=== PATIENT | female | born 1990 | race Hispanic/Latino ===

== ENCOUNTER 2018-12-18 12:06 | Emergency (ER) | payer MEDICAID, OTHER ==
[2018-12-18 12:48] VITALS: BP 128/85; PULSE 74; RESP 18; TEMP 98.7; O2SAT 100
--- NOTE | 2018-12-18 13:58 | ED PDOC ---
Arrival/HPI - General Chief Complaint: Female Genitourinary Time Seen by Provider: 12/18/18 12:50 Historian: Patient - History of Present Illness Narrative History of Present Illness (Text): 12/18/18 13:12 28 y/o female, with no significant past medical history, presents to the ED for evaluation of vaginal spotting since past 3 days. Patient reports onset of symptoms with mild vaginal spotting on Tuesday, which developed into heavy bright red bleeding today, prompting her to present to the ED for evaluation of possible miscarriage. Patient reports history of miscarriage 7 years ago at gestation age of 7 weeks. Patient informs sexual intercourse Tuesday morning but denies any complications at the time. Patient reports taking vitamins but denies any INVENTORY ADMINISTRATOR care yet. Patient states her LNMP was 11/08/18. Patient currently denies any other associated somatic complaints. Patient denies any fevers, chills, headache, dizziness, chest pain, shortness of breath, dyspnea on exertion, cough, abdominal pain, nausea, vomiting, diarrhea, back pain, neck pain, or any other complaints. PMD: NONE Time/Duration: < week Symptom Onset: Gradual Symptom Course: Unchanged Activities at Onset: Light Context: Home Past Medical History - Provider Review Nursing Documentation Reviewed: Yes - Psychiatric Hx Substance Use: No - Surgical History Hx Dilation and Curettage: Yes (x 7 years ago) - Anesthesia Hx Anesthesia: Yes Hx Anesthesia Reactions: No Hx Malignant Hyperthermia: No Family/Social History - Physician Review Nursing Documentation Reviewed: Yes Family/Social History: Unknown Family HX Smoking Status: Never Smoked Hx Alcohol Use: No Hx Substance Use: No Allergies/Home Meds Allergies/Adverse Reactions: Allergies No Known Allergies Allergy (Verified 12/18/18 12:43) Review of Systems - Physician Review All systems were reviewed & negative as marked: Yes - Review of Systems Constitutional: absent: Fevers Respiratory: absent: SOB, Cough Cardiovascular: absent: Chest Pain Gastrointestinal: absent: Abdominal Pain, Diarrhea, Nausea, Vomiting Genitourinary Female: Vaginal Bleeding. absent: Dysuria, Hematuria Musculoskeletal: absent: Back Pain, Neck Pain Skin: absent: Rash Neurological: absent: Headache, Dizziness Psychiatric: absent: Anxiety Physical Exam Vital Signs Reviewed: Yes Vital Signs Temp Pulse Resp BP Pulse Ox 12/18/18 12:06 98.7 F 74 18 128/85 100 Temperature: Afebrile Blood Pressure: Normal Pulse: Regular Respiratory Rate: Normal Appearance: Positive for: Well-Appearing, Non-Toxic, Comfortable Pain Distress: None Mental Status: Positive for: Alert and Oriented X 3 - Systems Exam Head: Present: Atraumatic, Normocephalic Pupils: Present: PERRL Extroacular Muscles: Present: EOMI Conjunctiva: Present: Normal Respiratory/Chest: Present: Clear to Auscultation, Good Air Exchange. No: Respiratory Distress, Accessory Muscle Use Cardiovascular: Present: Regular Rate and Rhythm, Normal S1, S2. No: Murmurs Abdomen: No: Tenderness, Distention, Peritoneal Signs Back: Present: Normal Inspection. No: CVA Tenderness Upper Extremity: Present: Normal Inspection. No: Cyanosis, Edema Lower Extremity: Present: Normal Inspection. No: Edema Neurological: Present: GCS=15, Speech Normal Skin: Present: Warm, Dry, Normal Color. No: Rashes Psychiatric: Present: Alert, Oriented x 3, Normal Insight, Normal Concentration Medical Decision Making ED Course and Treatment: 12/18/18 13:12 Impression: 28 year old female presents to the ED for evaluation of vaginal bleeding. Differential Diagnosis included but are not limited to: -- Miscarriage Plan: -- Labs -- Urine Culture -- Urinalysis -- Transvaginal US -- Reassess and disposition Prior Visits: Notes and results from previous visits were reviewed. Progress Notes: - RAD Interpretation Narrative RAD Interpretations (Text): 12/18/18 15:57 Transvaginal US reviewed by radiologist, shows: FINDINGS: The uterus measures 7.0 x 4.4 x 5.5 centimeters. The endometrium measures 11 millimeters. There is an intrauterine gestational sac measuring roughly 6 millimeters. There is no pole observed. The right ovary measures 4.0 x 3.7 centimeters and contains a 1.2 centimeters cyst. The left ovary measures 2.5 x 3.0 centimeters. IMPRESSION: Intrauterine gestational sac measuring less than 5 weeks gestational age. Recommend correlation with serial beta HCG levels and short-term interval follow-up. Ectopic not excluded. Radiology Orders: 12/18/18 13:12 TRANSVAGINAL [US] Stat Environmental Systems Coordinator: Radiologist - Scribe Statement The provider has reviewed the documentation as recorded by the Scribe Sera Dunham. All medical record entries made by the Scribe were at my direction and personally dictated by me. I have reviewed the chart and agree that the record accurately reflects my personal performance of the history, physical exam, medical decision making, and the department course for this patient. I have also personally directed, reviewed, and agree with the discharge instructions and disposition. Disposition/Present on Arrival - Present on Arrival Any Indicators Present on Arrival: No History of DVT/PE: No History of Uncontrolled Diabetes: No Urinary Catheter: No History of Decub. Ulcer: No History Surgical Site Infection Following: None - Disposition Have Diagnosis and Disposition been Completed?: Yes Diagnosis: Threatened miscarriage in early Disposition: HOME/ ROUTINE Disposition Time: 15:37 Patient Plan: Discharge Patient Problems: Current Active Problems Problem Status Onset Threatened miscarriage in early Acute Condition: FAIR Discharge Instructions (ExitCare): Threatened Miscarriage (DC), Bleeding With (DC) Print Language: BENGALI Additional Instructions: All medical record entries made by the Scribe were at my direction and personally dictated by me. I have reviewed the chart and agree that the record accurately reflects my personal performance of the history, physical exam, medical decision making, and the department course for this patient. I have also personally directed, reviewed, and agree with the discharge instructions and disposition. Please return to the ED for repeat beta-hcg test Referrals: Azalea Bravo MD [Staff Provider] - Follow up with primary Forms: [facility] [employer] [facility] ([place]), WORK NOTE
[2018-12-18 14:13] LABS: PH,URINE 7.5 (4.7-8.0); URINE APPEARANCE TURBID (CLEAR); URINE BILIRUBIN NEGATIVE (NEGATIVE); URINE BLOOD LARGE (NEGATIVE); URINE COLOR YELLOW (YELLOW); URINE GLUCOSE (UA) NEGATIVE (NEGATIVE); URINE LEUKOCYTE ESTERASE NEGATIVE Leu/uL (NEGATIVE); URINE PROTEIN NEGATIVE mg/dL (<30 mg/dL); URINE UROBILINOGEN 0.2 E.U./dL (<1 E.U./dL)
[2018-12-18 14:17] LABS: BASO # 0.02 K/mm3 (0.0-2.0); BASO % 0.3 % (0.0-3.0); EOS # 0.1 (0.0-0.7); EOS % 0.9 % (1.5-5.0); HEMOGLOBIN 12.8 g/dL (12.0-16.0); LYMPH # 1.8 (1.2-3.4); LYMPH % 27.6 % (22.0-35.0); MEAN CELL VOLUME 85.7 fl (80.0-105.0); MEAN CORPUSCULAR HEMOGLOBIN 28.1 pg (25.0-35.0); MEAN CORPUSCULAR HGB CONC 32.7 g/dl (31.0-37.0); MEAN PLATELET VOLUME 10.7 fl (7.0-11.0); MONO # 0.4 (0.1-0.6); MONO % 6.4 % (1.0-6.0); RBC 4.56 10^6/uL (3.5-6.1); WHITE BLOOD COUNT 6.5 10^3/uL (4.5-11.0)
[2018-12-18 14:22] LABS: ALB/GLOB RATIO 1.6 (1.1-1.8); ALBUMIN 4.6 g/dL (3.0-4.8); ALT/SGPT 13 U/L (7-56); AST/SGOT 17 U/L (14-36); BLOOD UREA NITROGEN 6 mg/dL (7-21); CALCIUM 9.3 mg/dL (8.4-10.5); GFR NON-AFRICAN AMERICAN > 60
--- NOTE | 2018-12-18 15:10 | US ---
Date of service: 12/18/2018 PROCEDURE: HISTORY: w/ spotting COMPARISON: TECHNIQUE: FINDINGS: The uterus measures 7.0 x 4.4 x 5.5 centimeters. The endometrium measures 11 millimeters. There is an intrauterine gestational sac measuring roughly 6 millimeters. There is no pole observed. The right ovary measures 4.0 x 3.7 centimeters and contains a 1.2 centimeters cyst. The left ovary measures 2.5 x 3.0 centimeters. IMPRESSION: Intrauterine gestational sac measuring less than 5 weeks gestational age. Recommend correlation with serial beta HCG levels and short-term interval follow-up. Ectopic not excluded.
== END 2018-12-18 15:44 | disposition home or self-care (01) ==
LOC: ED 12:06
DX: O20.0 Threatened abortion (principal); Z3A.01 Less than 8 weeks gestation of pregnancy

== ENCOUNTER 2018-12-20 10:46 | Emergency (ER) | payer MEDICAID, OTHER ==
[2018-12-20 11:14] VITALS: TEMP 98.6
[2018-12-20 13:07] VITALS: BP 105/68; PULSE 79; RESP 18; O2SAT 96
--- NOTE | 2018-12-21 01:07 | ED PDOC ---
Arrival/HPI - General Chief Complaint: Female Genitourinary Time Seen by Provider: 12/20/18 10:48 Historian: Patient - History of Present Illness Narrative History of Present Illness (Text): 28 y/o female presents to the ED for repeat quantitative beta hcg after her recent visit to the ED on 12/18. Transvaginal Ultrasound on 12/18 showed live IUP at 5 weeks. Pt states that vaginal bleeding has slowed since 2 days ago, now just intermittent light spotting. Denies fever, chills, abdominal pain, back pain, nausea, vomiting, dizziness, urinary symptoms, syncope, or any other associated symptoms. Past Medical History - Provider Review Nursing Documentation Reviewed: Yes - Cardiac Hx Cardiac Disorders: No - Pulmonary Hx Respiratory Disorders: No - Neurological Hx Neurological Disorder: No - HEENT Hx HEENT Disorder: No - Renal Hx Renal Disorder: No - Endocrine/Metabolic Hx Endocrine Disorders: No - Hematological/Oncological Hx Blood Disorders: No - Integumentary Hx Dermatological Disorder: No - Musculoskeletal/Rheumatological Hx Musculoskeletal Disorders: No - Gastrointestinal Hx Gastrointestinal Disorders: No - Genitourinary/Gynecological Hx Genitourinary Disorders: Yes - Psychiatric Hx Psychophysiologic Disorder: No Hx Substance Use: No - Surgical History Hx Dilation and Curettage: Yes - Anesthesia Hx Anesthesia: Yes Hx Anesthesia Reactions: No Hx Malignant Hyperthermia: No Family/Social History - Physician Review Nursing Documentation Reviewed: Yes Family/Social History: No Known Family HX Smoking Status: Never Smoked Hx Alcohol Use: No Hx Substance Use: No Allergies/Home Meds Allergies/Adverse Reactions: Allergies No Known Allergies Allergy (Verified 12/20/18 11:10) Review of Systems - Physician Review All systems were reviewed & negative as marked: Yes - Review of Systems Constitutional: Normal. absent: Fevers Eyes: Normal. absent: Vision Changes, Photophobia ENT: Normal. absent: Sore Throat Respiratory: Normal. absent: SOB, Cough, Wheezing Cardiovascular: Normal. absent: Chest Pain, Syncope Gastrointestinal: Normal. absent: Abdominal Pain, Nausea, Vomiting Genitourinary Female: Vaginal Bleeding. absent: Dysuria, Frequency, Hematuria, Vaginal Discharge Musculoskeletal: Normal. absent: Back Pain Skin: Normal. absent: Rash Neurological: Normal. absent: Headache, Dizziness Endocrine: Normal Hemo/Lymphatic: Normal Psychiatric: Normal Physical Exam Vital Signs Reviewed: Yes Vital Signs Temp Pulse Resp BP Pulse Ox 12/20/18 13:09 98.6 F 79 18 105/68 96 12/20/18 13:04 98.6 F 79 18 105/68 96 12/20/18 11:10 98.6 F 76 16 112/75 99 Temperature: Afebrile Blood Pressure: Normal Pulse: Regular Respiratory Rate: Normal Appearance: Positive for: Well-Appearing, Non-Toxic, Comfortable Pain Distress: None Mental Status: Positive for: Alert and Oriented X 3 - Systems Exam Head: Present: Atraumatic, Normocephalic Pupils: Present: PERRL Extroacular Muscles: Present: EOMI Conjunctiva: Present: Normal Mouth: Present: Moist Mucous Membranes Neck: Present: Normal Range of Motion Respiratory/Chest: Present: Clear to Auscultation, Good Air Exchange. No: Respiratory Distress, Accessory Muscle Use Cardiovascular: Present: Regular Rate and Rhythm, Normal S1, S2. No: Murmurs Abdomen: Present: Normal Bowel Sounds. No: Tenderness, Distention, Peritoneal Signs, Rebound, Guarding Back: Present: Normal Inspection. No: CVA Tenderness Upper Extremity: Present: Normal Inspection, Normal ROM, NORMAL PULSES, Neurovascularly Intact, Capillary Refill < 2s. No: Cyanosis, Edema, Temperature Abnormalties Lower Extremity: Present: Normal ROM Neurological: Present: GCS=15, CN II-XII Intact, Speech Normal, Motor Func Grossly Intact, Normal Sensory Function, Gait Normal Skin: Present: Warm, Dry, Normal Color. No: Rashes Psychiatric: Present: Alert, Oriented x 3, Normal Insight, Normal Concentration, Normal Affect, Normal Mood Medical Decision Making ED Course and Treatment: Initial Plan: * beta quant hcg hcg has almost doubled, from 1936 to 3776 will discharge home on strict bedrest with OBGYN followup for repeat hcg and ultrasound. Given prescription for vitamins. Pt given copy of diagnostic testing and blood type, A+. Diagnostic testing results and plan of care discussed with patient. Strict instructions given regarding prescription use, importance of followup, and signs/symptoms to return to ER including vaginal bleeding, abdominal pain, syncope, or any other new/worsening symptoms. Pt verbalized understanding of discussion. Patient is A&Ox3, ambulating with steady gait, with vital signs stable for discharge. - Lab Interpretations Lab Results: Beta HCG, Quant 3776.80 mIU/mL (0-6.15) H 12/20/18 11:50 Disposition/Present on Arrival - Present on Arrival Any Indicators Present on Arrival: No History of DVT/PE: No History of Uncontrolled Diabetes: No Urinary Catheter: No History of Decub. Ulcer: No History Surgical Site Infection Following: None - Disposition Have Diagnosis and Disposition been Completed?: Yes Diagnosis: Vaginal bleeding during Disposition: HOME/ ROUTINE Disposition Time: 12:35 Patient Plan: Discharge Condition: GOOD Discharge Instructions (ExitCare): Bleeding With Additional Instructions: Followup with OBGYN within 2 days for repeat hcg and ultrasound Take vitamins daily Increase fluids Strict bedrest Followup with clinic or primary within 2 days Return to ER with any new/worsening symptoms Prescriptions: Pnv No.95/Ferrous Fum/Folic AC [ Caplet] 1 each PO DAILY #30 tablet Referrals: [facility] [Outside] - Follow up with primary [facility] [place] [Outside] - Follow up with primary Esperanza Gu MD [Staff Provider] - Follow up with primary Mally Ness MD [Medical Doctor] - Follow up with primary Forms: [facility] [facility] ([place]), WORK NOTE
== END 2018-12-20 13:09 | disposition home or self-care (01) ==
LOC: ED 10:46
DX: O20.9 Hemorrhage in early pregnancy, unspecified (principal); Z3A.01 Less than 8 weeks gestation of pregnancy

== ENCOUNTER 2019-01-04 14:08 | Emergency (ER) | payer MEDICAID, OTHER ==
[2019-01-04 14:48] VITALS: BMI 34.0
--- NOTE | 2019-01-04 15:20 | ED PDOC ---
Arrival/HPI - General Chief Complaint: Female Genitourinary Time Seen by Provider: 01/04/19 14:25 Historian: Patient - History of Present Illness Narrative History of Present Illness (Text): 01/04/19 15:14 28 year old female, , with past history of miscarriage, presents to the ED for evaluation of vaginal bleeding since yesterday. Patient reports noticing brown spotting yesterday which later developed into heavy bleeding with bright red blood this morning, prompting her to present to the ED for evaluation. Patient reports similar episode 3 weeks ago when she had an US performed in the ED which showed IU of 5 weeks. Patient currently informs abdominal cramping but denies any other associated somatic complaints. Patient denies any fevers, chills, headache, dizziness, chest pain, shortness of breath, dyspnea on exertion, cough, diaphoresis, nausea, vomiting, diarrhea, back pain, neck pain, or any other complaints. Patient states she does not have an OBGYN secondary to lack of insurance. Time/Duration: 24 hours Symptom Onset: Gradual Symptom Course: Unchanged Activities at Onset: Light Context: Home Past Medical History - Provider Review Nursing Documentation Reviewed: Yes - Cardiac Hx Cardiac Disorders: No - Pulmonary Hx Respiratory Disorders: No - Neurological Hx Neurological Disorder: No - HEENT Hx HEENT Disorder: No - Renal Hx Renal Disorder: No - Endocrine/Metabolic Hx Endocrine Disorders: No - Hematological/Oncological Hx Blood Disorders: No - Integumentary Hx Dermatological Disorder: No - Musculoskeletal/Rheumatological Hx Musculoskeletal Disorders: No - Gastrointestinal Hx Gastrointestinal Disorders: No - Genitourinary/Gynecological Hx Genitourinary Disorders: Yes - Psychiatric Hx Psychophysiologic Disorder: No Hx Substance Use: No - Surgical History Hx Dilation and Curettage: Yes - Anesthesia Hx Anesthesia: Yes Hx Anesthesia Reactions: No Hx Malignant Hyperthermia: No Family/Social History - Physician Review Nursing Documentation Reviewed: Yes Family/Social History: Unknown Family HX Smoking Status: Never Smoked Hx Alcohol Use: No Hx Substance Use: No Allergies/Home Meds Allergies/Adverse Reactions: Allergies No Known Allergies Allergy (Verified 01/04/19 14:55) Review of Systems - Physician Review All systems were reviewed & negative as marked: Yes - Review of Systems Constitutional: absent: Fevers Eyes: absent: Vision Changes Respiratory: absent: SOB, Cough Cardiovascular: absent: Chest Pain Gastrointestinal: Abdominal Pain. absent: Diarrhea, Nausea, Vomiting Genitourinary Female: Vaginal Bleeding Musculoskeletal: absent: Back Pain, Neck Pain Skin: absent: Rash Neurological: absent: Headache, Dizziness Endocrine: absent: Diaphoresis Psychiatric: absent: Anxiety Physical Exam - Physical Exam Narrative Physical Exam (Text): 01/04/19 15:21 Gen: VS reviewed, alert, well developed, well nourished, nontoxic, mild distress. ENT: normal pharynx. Eye: EOMI, PERRL. Neck: no JVD, supple, no adenopathy. CV: regular rate, regular rhythm, no rubs, no murmur, no gallops, S1, S2, pulses equal and strong. Pulm: no distress, clear to auscultation, no wheeze, no rhonchi, breath sounds equal, no rales. Abd: soft, nontender, no guarding, no rebound, no rigidity, normal bowel sounds. Genital: RN and scribe present as chaperones. Clot and blood protruding from cervix. Ext: no edema. Skin: good color, no rash, no cyanosis. Psych: responds appropriately to questions, normal affect. Neuro: oriented x 3, CN2-12 intact grossly, motor intact, sensation intact. Vital Signs Reviewed: Yes Vital Signs Temp Pulse Resp BP Pulse Ox 01/04/19 14:48 98.5 F 80 18 147/74 100 Temperature: Afebrile Blood Pressure: Normal Pulse: Regular Respiratory Rate: Normal Appearance: Positive for: Well-Appearing, Non-Toxic, Comfortable Pain Distress: Mild Mental Status: Positive for: Alert and Oriented X 3 Medical Decision Making ED Course and Treatment: 01/04/19 15:23 Impression: 28 year old female presents to the ED for evaluation of vaginal bleeding. Plan: -- Labs -- Transvaginal US -- Reassess and disposition Prior Visits: Notes and results from previous visits were reviewed. Progress Notes: 01/04/19 17:31 no IUP compared to old study, no significant bleeding during ED course, labs ok, vitals ok, refer to combat systems officer for routine care after miscarriage. blood type o positive rhogam not indicated. - Scribe Statement The provider has reviewed the documentation as recorded by the Scribe Sera Dunham. All medical record entries made by the Gretelibe were at my direction and personally dictated by me. I have reviewed the chart and agree that the record accurately reflects my personal performance of the history, physical exam, medical decision making, and the department course for this patient. I have also personally directed, reviewed, and agree with the discharge instructions and disposition. Disposition/Present on Arrival - Present on Arrival Any Indicators Present on Arrival: No History of DVT/PE: No History of Uncontrolled Diabetes: No Urinary Catheter: No History of Decub. Ulcer: No History Surgical Site Infection Following: None - Disposition Have Diagnosis and Disposition been Completed?: Yes Diagnosis: Complete miscarriage Disposition: HOME/ ROUTINE Disposition Time: 17:32 Patient Plan: Discharge Condition: STABLE Discharge Instructions (ExitCare): Miscarriage Referrals: Christoph Omalley MD [Staff Provider] - Follow up with primary [facility] [Outside] - Follow up with primary Forms: [facility] ([place]), WORK NOTE
[2019-01-04 16:15] VITALS: RESP 16
--- NOTE | 2019-01-04 16:34 | US ---
Date of service: 01/04/2019 HISTORY: bleeding, miscarriage COMPARISON: None available. TECHNIQUE: Transvaginal FINDINGS: UTERUS: Measures 7.9 x 4.3 by 5.7 cm. No fibroid or other mass lesion seen. ENDOMETRIUM: Measures 20 mm in diameter. No intrauterine gestation. CERVIX: No cervical abnormality identified. RIGHT OVARY: Measures 2.4 x 2.2 x 2.2 cm. No solid mass. Normal flow. 1.4 cm physiologic cyst LEFT OVARY: Not visualized FREE FLUID: No significant free fluid noted. OTHER FINDINGS: None. IMPRESSION: Mildly thickened heterogeneous endometrium of uncertain significance. No intrauterine gestation. No evidence of retained products of conception.
[2019-01-04 16:58] LABS: BASO # 0.02 K/mm3 (0.0-2.0); BASO % 0.2 % (0.0-3.0); EOS # 0.1 (0.0-0.7); EOS % 1.4 % (1.5-5.0); HEMOGLOBIN 12.7 g/dL (12.0-16.0); LYMPH # 1.7 (1.2-3.4); LYMPH % 19.4 % (22.0-35.0); MEAN CELL VOLUME 85.9 fl (80.0-105.0); MEAN CORPUSCULAR HEMOGLOBIN 28.4 pg (25.0-35.0); MEAN CORPUSCULAR HGB CONC 33.1 g/dl (31.0-37.0); MEAN PLATELET VOLUME 10.9 fl (7.0-11.0); MONO # 0.6 (0.1-0.6); MONO % 6.5 % (1.0-6.0); RBC 4.47 10^6/uL (3.5-6.1); RED CELL DISTRIBUTION WIDTH 12.8 % (11.5-14.5); WHITE BLOOD COUNT 8.8 10^3/uL (4.5-11.0)
[2019-01-04 18:43] VITALS: BP 140/85; PULSE 78; TEMP 98.1; O2SAT 99
== END 2019-01-04 18:09 | disposition home or self-care (01) ==
LOC: ED 14:08
DX: O03.9 Complete or unspecified spontaneous abortion without complication (principal)